=== PATIENT | male | born 1950 | race Caucasian/White ===

== ENCOUNTER → 2016-08-03 | Outpatient (CLI) | payer OTHER, BC | LOC: MMPC 09:00 | PROVIDERS: ATTEND Family Medicine | DX: I10 Essential (primary) hypertension (principal); B35.9 Dermatophytosis, unspecified; E11.9 Type 2 diabetes mellitus without complications; E78.5 Hyperlipidemia, unspecified; E66.3 Overweight | CPT/HCPCS: 99214; G0463 ==

== ENCOUNTER → 2016-08-05 | Outpatient (CLI) | payer OTHER, BC | LOC: MMPC 10:00 | PROVIDERS: ATTEND Podiatrist Foot & Ankle Surgery | DX: M20.11 Hallux valgus (acquired), right foot (principal); M20.41 Other hammer toe(s) (acquired), right foot; B35.1 Tinea unguium; E11.40 Type 2 diabetes mellitus with diabetic neuropathy, unspecified; E11.65 Type 2 diabetes mellitus with hyperglycemia; L60.3 Nail dystrophy; L60.0 Ingrowing nail; Z98.1 Arthrodesis status | CPT/HCPCS: 11720 ×2; 99202; G0463 ==

== ENCOUNTER 2016-09-08 19:06 | Inpatient (IN) | payer OTHER, BC ==
[2016-09-08] MEDS ORDERED: Sodium Chloride 0.9% 1,000 ML PRIMARY IV ONE (19:22)
[2016-09-08] MEDS ORDERED: NORMAL SALINE 10 ML SYRINGE FLUSH IVP PRN ×2 (19:22→22:24)
--- NOTE | 2016-09-08 19:34 | EKG ---
[address] [address] Measurements Intervals [place] Rate: 92 P: 64 SD: 355 QRS: 28 QRSD: 94 T: 218 QT: 347 QTc: 397 Interpretive Statements Sinus Rhythm with SD incorrectly reported by computer (0.200) NONSPECIFIC ST & T-WAVE ABNORMALITY and baseline interference Compared to ECG 10/08/2015 10:08:22 T-wave abnormality now present Sinus rhythm no longer present Left ventricular hypertrophy no longer present Possible ischemia no longer present Electronically Signed On 09-09-16 09:40:57 MST by Vincenzo Francis MD [email or web address]
[2016-09-08 19:47] LABS: ASPARTATE AMINO TRANSFERASE 34 IU/L (21-57); BILIRUBIN,TOTAL 0.8 mg/dL (0.3-1.2); BLOOD UREA NITROGEN 22 mg/dL (7-22); BUN/CREATININE RATIO 18.33 (6-20); C-REACTIVE PROTEIN 1.3 mg/dL (0.0-0.9); CALCIUM 10.4 mg/dL (8.7-10.7); CHLORIDE 97 meq/L (98-112); CREATININE 1.2 mg/dL (0.70-1.50); EST GLOMERULAR FILTRATION > 60 (>60 ml/min/1.73m(2)); MAGNESIUM 2.2 mg/dL (1.6-2.4); POTASSIUM 5.2 meq/L (3.8-5.2); SODIUM 131 meq/L (135-145); TOTAL PROTEIN 8.1 g/dL (6.1-8.0)
[2016-09-08 19:47] LABS: BASOPHILS # (AUTO) 0.02 10*3/UL; BASOPHILS % (AUTO) 0.2 % (0-1); EOSINOPHILS % (AUTO) 0.3 % (0-8); HEMATOCRIT 39.9 % (42.0-52.0); HEMOGLOBIN 14.3 g/dL (14.0-18.0); IMM GRAN % (AUTO) 0.4 % (0-5); IMM GRAN# (AUTO) 0.04 10*3/UL; LYMPHOCYTES # (AUTO) 1.28 10*3/uL; LYMPHOCYTES % (AUTO) 13.1 % (10-50); MEAN CORPUSCULAR HEMOGLOBIN 29.1 PG (27-31); MEAN CORPUSCULAR HGB CONC 35.8 g/dL (33-37); MEAN PLATELET VOLUME 9.3 FL (7.4-12.2); MONOCYTES # (AUTO) 0.55 10*3/UL (0.3-0.8); MONOCYTES % (AUTO) 5.6 % (5-15); NEUTROPHILS # (AUTO) 7.85 10*3/UL; NEUTROPHILS % (AUTO) 80.4 % (50-80); RED BLOOD COUNT 4.91 10^6/uL (4.70-6.10); WHITE BLOOD COUNT 9.77 10^3/uL (4.8-10.8)
[2016-09-08 19:48] LABS: PLATELET MORPHOLOGY COMMENT NORMAL MORPHOLOGY (NORM)
[2016-09-08 19:51] LABS: GLUCOSE 556 mg/dL (78-110); SERUM ALCOHOL < 10 mg/dL (0-10)
[2016-09-08] MEDS ORDERED: INSULIN REGULAR, HUMAN 100 UNIT/1 ML - 3 ML SUBCUT ONE (20:07)
[2016-09-08 20:08] LABS: BILIRUBIN,URINE NEGATIVE (NEG); CLARITY,URINE CLEAR (CLEAR); GLUCOSE, URINE (UA) 500 mg/dL (NEG); LEUKOCYTE ESTERASE ,URINE NEGATIVE (NEG); NITRATE,URINE NEGATIVE (NEG); OCCULT BLOOD,URINE SMALL (NEG); PROTEIN,URINE 30 mg/dl (NEG); UROBILINOGEN,URINE 0.2 EU/dL (0.2)
[2016-09-08 20:11] LABS: URINE SAMPLE TYPE VOIDED SPECIMEN
[2016-09-08 20:12] LABS: URINE SPECIFIC GRAVITY - MAN 1.005
[2016-09-08 20:14] LABS: VENOUS HCO3 13.4 mmol/L (22-26)
[2016-09-08 20:17] LABS: CANNABINOID SCREEN,URINE NEGATIVE (NEG); COCAINE SCREEN NEGATIVE (NEG); METHAMPHETAMINES SCREEN,URINE NEGATIVE (NEG)
--- NOTE | 2016-09-08 20:38 | DI ---
HISTORY: Confusion. COMPARISON: None available. TECHNIQUE: Multiple helically acquired CT images were obtained through the brain without contrast. FINDINGS: Examination demonstrates normal, symmetric ventricles and other CSF containing spaces. There is no evidence of mass lesion, hemorrhage nor midline shift. Surrounding soft tissue and osseous structures are unremarkable. IMPRESSION: 1. Normal CT of the head.
--- NOTE | 2016-09-08 21:29 | PDOC ---
History and Physical - History of Present Illness Date and Time of Service: 09/08/2016 10 PM Chief Complaint: Weakness, fall and confusion 1-2 days duration History of Present Illness: This is a 66 years old male with medical history significant for history of diabetes on insulin, hypertension, hypercholesterolemia, gout, chronic back pain and history of prostate cancer status post surgery who fell at home and he was unable to get up. He said the last day or 2 he is feeling weak, confused and dizzy and today he fell but he managed to get up and then later on he said as he laid down he fell and was between a chair and his bed and unable to get up and then managed to call EMS, however he said he struggled before he was able to contact them and then they came in and brought him to the hospital. Report from the ER physician is that the when the EMS arrived at the house they found that his home was covered with garbage, dog feces and urine. Apparently patient had fallen into a pile of garbage next to his bed. He came into the hospital was found to have a high blood sugar more than 500 he was given fluids and insulin and he was admitted. A CT of the head was normal. He did mention that the last time he took his insulin about 3 weeks ago as he cannot afford the medication. The last time he checked his blood sugar was 2 weeks ago. In addition the last time he took his pills was about 2 days ago. He reports history of numbness in his feet but this is being going on for a while and he said that's why he has a spinal stimulator. Past Medical History Medical History: 1. Diabetes on insulin. 2. History of gout. 3. Sleep apnea. 4. Hypertension. 5. History of prostate cancer status post surgery. 6. Chronic back pain had a previous spinal simulator insertion Surgical History: 1. History of prostatectomy. 2. History of left hand graft surgery. 3. Multiple back surgery. 4. History of spinal stimulator insertion before Pertinent Family History: Diabetes in his mother Past Social History: Never smoked, doesn't drink no drugs. Lives by himself. Tobacco Use: Former Smoker Substance Use Type: None Alcohol Use: None Medication / Allergies Home Medications: Home Medications Medication Instructions Recorded Confirmed Type Hydrocodone Bit/Acetaminophen 1 tab PO Q4-6H #15 tab 05/01/15 09/08/16 Clinic [[place] 7.5-325 Tablet] Ascorbic Acid [Vitamin C] 1,000 mg PO QD #30 tab 09/25/15 09/08/16 Clinic Cholecalciferol (Vitamin D3) 1 cap PO QD #30 cap 09/25/15 09/08/16 Clinic [Vitamin D] Sulfamethoxazole/Trimethoprim 1 tab PO BID #10 tab 10/14/15 09/08/16 Clinic [Bactrim Ds Tablet] Allopurinol 300 mg PO DAILY #90 tab 03/18/16 09/08/16 Clinic Amlodipine Besylate [Norvasc] 1 tab ORAL QAM #90 tab 03/18/16 09/08/16 Clinic Atorvastatin Calcium [Lipitor] 1 tab PO QHS #90 tab 03/18/16 09/08/16 Clinic Carisoprodol [Soma] 1 tab PO TID #90 tab 03/18/16 09/08/16 Clinic Doxazosin Mesylate [Cardura] 1 mg PO QHS #90 tab 03/18/16 09/08/16 Clinic Glimepiride 1 tab ORAL QD #90 tab 03/18/16 09/08/16 Clinic Indomethacin 50 mg PO TID #30 cap 03/18/16 09/08/16 Clinic Lisinopril/Hydrochlorothiazide 2 tab PO DAILY #60 tab 03/18/16 09/08/16 Clinic [Lisinopril-Hctz 20-12.5 Mg Tab] Lorazepam 1 tab PO TID PRN #30 tab 03/18/16 09/08/16 Clinic Metformin HCl 1 tab ORAL BID #180 tab 03/18/16 09/08/16 Clinic Metoprolol Succinate 1 tab PO DAILY #90 tab 03/18/16 09/08/16 Clinic Omeprazole 1 cap ORAL QD #90 capsule 03/18/16 09/08/16 Clinic Paroxetine HCl 1 tab ORAL QD #90 tab 03/18/16 09/08/16 Clinic Insulin Glargine Inj [Lantus Inj] 50 unit SQ TID #4 vial 03/19/16 09/08/16 Clinic Blood Sugar Diagnostic [Onetouch 1 each IN tid and hs #1 box 06/16/16 09/08/16 Clinic Ultra Test Strips] Lancets [Onetouch Delica] 1 each MC tid and hs #1 box 06/16/16 09/08/16 Clinic Metoprolol Succinate 1 tab PO DAILY #30 tab 07/20/16 09/08/16 Clinic Clotrimazole/Betamethasone Dip 1 applic TOPICAL BID #1 tube 08/03/16 09/08/16 Clinic [Clotrimazole-Betamethasone [facility]] Allergies/Adverse Reactions: Allergies Allergy/AdvReac Type Severity Reaction Status Date / Time No Known Allergies Allergy Verified 09/08/16 19:38 Review of Systems - Review of Systems All Systems: Reviewed & No Additional Complaints Except as Stated Exam - General General Appearance: POSITIVE: No Acute Distress, Cooperative, Obese - Head Head Exam: POSITIVE: Normal Inspection - Eye Eye Exam: POSITIVE: Normal Appearance - ENT ENT Exam: POSITIVE: Normal Exam - Neck Neck Exam: POSITIVE: Normal Inspection - Respiratory Respiratory Exam: POSITIVE: Clear to Auscultation - Bilaterally - Cardiovascular Cardiovascular Exam: POSITIVE: RRR - GI/Abdominal GI/Abdominal Exam: POSITIVE: Normal Bowel Sounds, Non Tender, Non Distended, Soft - Rectal Rectal Exam: POSITIVE: Deferred - External Exam: POSITIVE: Deferred - Extremities Additional Extremities Exam Details: A tinea corporis noted close of the right ankle. Few red areas noted on the left leg. Probably from the fall. Results - Labs CBC and BMP: 09/08/16 19:44 09/09/16 06:01 - EKG Data -: EKG Interpreted by Me - EKG Data Additional EKG Details: T inversion in the lateral leads but there is baseline interference from his stimulator - Imaging Status: Report Reviewed by Me (CT of the head was negative, chest x-ray was normal) Assessment and Plan - Patient Problems (1) Hyperosmolar non-ketotic state in patient with type 2 diabetes mellitus Current Visit: Yes Status: Acute Comment: This is probably secondary to not taking his medications, he was given fluid and insulin will continue with fluid and put him on sliding scale insulin. For long-acting insulin will put him on NPH as he said he can not afford the Lantus so NPH would be more affordable for him. Will put him also on regular insulin sliding scale. We'll hold off on the metformin for now and continue with the Amaryl. (2) Hypertension Current Visit: Yes Status: Acute Comment: Will put him back on lisinopril, metoprolol and Norvasc. (3) Hyperlipidemia Current Visit: Yes Status: Acute Comment: Continue with his previous medications (4) History of gout Current Visit: Yes Status: Acute Comment: Continue with allopurinol (5) Elevated troponin Current Visit: Yes Status: Acute Comment: Unclear reason he is denying chest pain. Repeat his enzymes tomorrow (6) Tinea corporis Current Visit: Yes Status: Acute Comment: We'll put him on topical clotrimazole
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
[2016-09-08] MEDS ORDERED: Insulin NPH Kwikpen Inj 100 UNIT/ML INSULN.PEN SUBCUT ONE (22:33)
[2016-09-08] MEDS: Sodium Chloride 0.9% 1,000 ML IV SCH (23:26)
[2016-09-09] MEDS: Sodium Chloride 0.9% 1,000 ML IV SCH ×2 (06:01→16:03)
[2016-09-09 06:37] LABS: BLOOD UREA NITROGEN 18 mg/dL (7-22); CALCIUM 9.3 mg/dL (8.7-10.7); CHLORIDE 104 meq/L (98-112); EST GLOMERULAR FILTRATION > 60 (>60 ml/min/1.73m(2)); GLUCOSE 294 mg/dL (78-110); POTASSIUM 3.8 meq/L (3.8-5.2); SODIUM 136 meq/L (135-145)
[2016-09-09] MEDS: INSULIN REGULAR, HUMAN 100 UNIT/1 ML - 3 ML SUBCUT SCH ×3 (07:06→16:59)
[2016-09-09] MEDS: ASPIRIN 325 MG TABLET PO SCH (07:06)
[2016-09-09] MEDS: METOPROLOL SUCCINATE 25 MG SR 24H TABLET PO SCH (08:37)
[2016-09-09] MEDS: ALLOPURINOL 300 MG TABLET PO SCH (08:37)
[2016-09-09] MEDS: LISINOPRIL 20 MG TABLET PO SCH (08:38)
[2016-09-09] MEDS: PARoxetine Tab 20 MG TAB PO SCH (08:38)
[2016-09-09] MEDS: GLIMEPIRIDE 2 MG TABLET PO SCH (08:38)
[2016-09-09] MEDS: ENOXAPARIN SODIUM 40 MG/0.4 ML SYRINGE SUBCUT SCH (08:38)
[2016-09-09] MEDS: OMEPRAZOLE 20 MG CAPSULE PO SCH (08:38)
[2016-09-09] MEDS: CLOTRIMAZOLE 28.35 GM CREAM TOPICAL SCH ×2 (08:40→20:20)
[2016-09-09] MEDS ORDERED: Insulin NPH Kwikpen Inj 100 UNIT/ML INSULN.PEN SUBCUT SCH ×2 (09:00→21:00)
--- NOTE | 2016-09-09 09:02 | PDOC(PROG) ---
Date and Time of Service: 09/09/2016 8:59 AM Interval History: Subjective Patient feels a lot better today compared to yesterday. He is denying chest pain. No shortness of breath today. Objective : Data - Labs CBC and BMP: 09/08/16 19:44 09/09/16 06:01 Labs - Last 24 Hours: Laboratory Results 09/09/16 Range/Units 06:01 Sodium 136 (135-145) meq/L Potassium 3.8 D (3.8-5.2) meq/L Chloride 104 (98-112) meq/L Carbon Dioxide 21 L (23-33) meq/L Anion Gap 11 (5-20) BUN 18 (7-22) mg/dL Creatinine 1.0 (0.70-1.50) mg/dL Estimated GFR > 60 (>60 ml/min/1.73m(2)) BUN/Creatinine Ratio 18.00 (6-20) Glucose 294 H (78-110) mg/dL Calculated Osmolality 294.0 H (267-292) mOsm/kg Calcium 9.3 (8.7-10.7) mg/dL Troponin I 0.108 H (< 0.040) ng/mL Objective : Exam - General General Appearance: No Acute Distress, Cooperative, Obese - Head Head Exam: Normal Inspection, Atraumatic - Eye Eye Exam: Normal Appearance - ENT ENT Exam: Normal Exam - Neck Neck Exam: Normal Inspection - Respiratory Respiratory Exam: Clear to Auscultation - Bilaterally - Cardiovascular Cardiovascular Exam: RRR - GI/Abdominal GI/Abdominal Exam: Normal Bowel Sounds, Non Tender, Non Distended, Soft - Rectal Rectal Exam: Deferred - External Exam: Deferred - Extremities Extremities Exam: Normal Inspection - Back Back Exam: Normal Inspection - Neurological Neurological Exam: Alert, Oriented x 3, CN II-XII Intact, Moves All Extremities Equally - Psychiatric Psychiatric Exam: Normal Affect - Integumentary Integumentary Exam: Normal Color Assessment and Plan - Patient Problems (1) Hyperosmolar non-ketotic state in patient with type 2 diabetes mellitus Current Visit: Yes Status: Acute Comment: This is improved. We'll cut back on his fluid and maybe stop it at one point today. We will put him on NPH insulin will talk to pharmacy about cost. Will switch him to NPH instead of the Lantus. As he cannot afford it (2) Hypertension Current Visit: Yes Status: Acute Comment: Same medications (3) Hyperlipidemia Current Visit: Yes Status: Acute Comment: Same med (4) History of gout Current Visit: Yes Status: Acute Comment: Same med (5) Elevated troponin Current Visit: Yes Status: Acute Comment: Troponin went little bit higher we'll recheck it again will order an echocardiogram I did tell him need to have a stress test at one point , he did say that he had a stress test last year will look for it (6) Tinea corporis Current Visit: Yes Status: Acute Comment: He is on Chlortrimazole
--- NOTE | 2016-09-09 09:27 | DI ---
AP CHEST X-RAY, 09/08/2016 8:08 PM : Clinical History: Confusion Previous Exam: October 08, 2015 There is no acute soft tissue or bony abnormality. Heart size is normal. Lungs are clear. Mediastinal structures are normal. There are no pulmonary nodules. Overlying EKG leads are seen. Reading: Normal chest x-ray.
--- NOTE | 2016-09-09 15:01 | EKG ---
[address] [place] [address] [place] [id number] Measurements Intervals [place] Rate: 74 P: 63 WI: 162 QRS: 53 QRSD: 106 T: 140 QT: 405 QTc: 432 Interpretive Statements SINUS RHYTHM MODERATE T-WAVE ABNORMALITY, CONSIDER LATERAL ISCHEMIA [-0.1+ mV T WAVE IN I/aVL/V5/V6] Compared to ECG 09/08/2016 19:33:38 baseline interference no longer present Possible ischemia now present mostly laterally but no development of Q-waves T-wave abnormality still present Electronically Signed On 09-10-16 08:29:52 [facility] by Vincenzo Francis MD [id number]
[2016-09-09] MEDS ORDERED: IBUPROFEN 400 MG TABLET PO PRN (19:20)
[2016-09-09] MEDS: Insulin NPH Kwikpen Inj 100 UNIT/ML INSULN.PEN SUBCUT SCH (20:19)
[2016-09-09] MEDS: ATORVASTATIN 40 MG TABLET PO SCH (20:19)
[2016-09-10 08:01] LABS: BLOOD UREA NITROGEN 20 mg/dL (7-22); CALCIUM 9.4 mg/dL (8.7-10.7); CHLORIDE 107 meq/L (98-112); EST GLOMERULAR FILTRATION > 60 (>60 ml/min/1.73m(2)); GLUCOSE 198 mg/dL (78-110); SODIUM 137 meq/L (135-145)
[2016-09-10] MEDS: GLIMEPIRIDE 2 MG TABLET PO SCH (08:13)
[2016-09-10] MEDS: LISINOPRIL 20 MG TABLET PO SCH (08:13)
[2016-09-10] MEDS: METOPROLOL SUCCINATE 25 MG SR 24H TABLET PO SCH (08:13)
[2016-09-10] MEDS: OMEPRAZOLE 20 MG CAPSULE PO SCH (08:13)
[2016-09-10] MEDS: ALLOPURINOL 300 MG TABLET PO SCH (08:13)
[2016-09-10] MEDS: PARoxetine Tab 20 MG TAB PO SCH (08:13)
[2016-09-10] MEDS: ASPIRIN 325 MG TABLET PO SCH (08:14)
[2016-09-10] MEDS: Insulin NPH Kwikpen Inj 100 UNIT/ML INSULN.PEN SUBCUT SCH ×2 (08:14→21:15)
[2016-09-10] MEDS: CLOTRIMAZOLE 28.35 GM CREAM TOPICAL SCH ×2 (08:14→21:16)
[2016-09-10] MEDS: ENOXAPARIN SODIUM 40 MG/0.4 ML SYRINGE SUBCUT SCH (08:15)
[2016-09-10] MEDS: INSULIN REGULAR, HUMAN 100 UNIT/1 ML - 3 ML SUBCUT SCH ×3 (08:15→16:22)
--- NOTE | 2016-09-10 12:25 | PDOC(PROG) ---
Interval History: Doing well or chest pain feels much better than when he first came in Objective : Data - Labs CBC and BMP: 09/08/16 19:44 09/10/16 07:48 Labs - Last 24 Hours: Laboratory Results 09/09/16 09/10/16 Range/Units 13:14 07:48 Sodium 137 (135-145) meq/L Potassium 4.0 (3.8-5.2) meq/L Chloride 107 (98-112) meq/L Carbon Dioxide 21 L (23-33) meq/L Anion Gap 9 (5-20) BUN 20 (7-22) mg/dL Creatinine 1.0 (0.70-1.50) mg/dL Estimated GFR > 60 (>60 ml/min/1.73m(2)) BUN/Creatinine Ratio 20.00 (6-20) Glucose 198 H (78-110) mg/dL Calculated Osmolality 292.0 (267-292) mOsm/kg Calcium 9.4 (8.7-10.7) mg/dL Troponin I 0.091 H (< 0.040) ng/mL Objective : Exam - General General Appearance: Cooperative - Head Head Exam: Normal Inspection - Eye Eye Exam: Normal Appearance - Neck Neck Exam: Normal Inspection - Respiratory Respiratory Exam: Clear to Auscultation - Bilaterally, Breathing Non Labored, Normal To Percussion, Normal to Percussion and Palpation - Cardiovascular Cardiovascular Exam: RRR, No Murmur, No Clicks, No Gallops - GI/Abdominal GI/Abdominal Exam: Normal Bowel Sounds, Non Tender, Soft - Extremities Extremities Exam: Normal Capillary Refill, No Clubbing Present, No Edema Present Assessment and Plan - Patient Problems (1) Dehydration Current Visit: Yes Status: Acute (2) Elevated troponin Current Visit: Yes Status: Acute (3) Hyperosmolar non-ketotic state in patient with type 2 diabetes mellitus Current Visit: Yes Status: Acute (4) Hypertension Current Visit: Yes Status: Acute - Assessment / Plan Additional Assessment/Plan Details: #1 uncontrolled diabetes hyperosmolar statethis is much better patient is on NPH now he cannot afford the Lantus sugars today 168 #2 positive troponins with the risk factors being diabetes hypertension order Lexiscan stress test #3 hypertension stable continue current meds #4 uncontrolled diabetes check hemoglobin A1c
[2016-09-10] MEDS: ATORVASTATIN 40 MG TABLET PO SCH (21:16)
[2016-09-11] MEDS ORDERED: Insulin NPH Kwikpen Inj 100 UNIT/ML INSULN.PEN SUBCUT ONE (02:18)
[2016-09-11] MEDS: ASPIRIN 325 MG TABLET PO SCH (07:29)
[2016-09-11] MEDS: INSULIN REGULAR, HUMAN 100 UNIT/1 ML - 3 ML SUBCUT SCH ×3 (07:30→17:37)
[2016-09-11] MEDS: Insulin NPH Kwikpen Inj 100 UNIT/ML INSULN.PEN SUBCUT SCH (07:30)
[2016-09-11] MEDS: OMEPRAZOLE 20 MG CAPSULE PO SCH (08:29)
[2016-09-11] MEDS: PARoxetine Tab 20 MG TAB PO SCH (08:29)
[2016-09-11] MEDS: ENOXAPARIN SODIUM 40 MG/0.4 ML SYRINGE SUBCUT SCH (08:30)
[2016-09-11] MEDS: GLIMEPIRIDE 2 MG TABLET PO SCH (08:30)
[2016-09-11] MEDS: ALLOPURINOL 300 MG TABLET PO SCH (08:30)
[2016-09-11] MEDS: LISINOPRIL 20 MG TABLET PO SCH (08:30)
[2016-09-11] MEDS: CLOTRIMAZOLE 28.35 GM CREAM TOPICAL SCH ×2 (08:55→20:28)
--- NOTE | 2016-09-11 09:37 | STRESSTEST ---
[facility] [place] Interpretive Statements This is a very nice 66 yo gentleman with hx of diabetes and htn ,comes in with hyperosmalar state and positive troponins. some inverted t waves in inf leads SOB resolved with coffee will await imaging Electronically Signed On 09-15-16 09:16:39 [facility] by Vincenzo Francis MD [id number]
[2016-09-11] MEDS: METOPROLOL SUCCINATE 25 MG SR 24H TABLET PO SCH (09:42)
--- NOTE | 2016-09-11 11:05 | PT.PROG ---
Progress Note Progress Note: S: Patient reports he had a stress test this morning and thinks it went well. He notes he is feeling recovered at this time and that he has been more steady on his feet lately. O: Ambulated 320' from seated in chair to seated EOB, 15 sit to stands, 20 LAQ Bilaterally, marching X30ea, HS curls with RTB X 20 ea, seated hip ABD X 20 with RTB. A: Noted fatigue following session, minor balance deficit with LE fatigue during amb. P: Continue per POC.
[2016-09-11] MEDS ORDERED: Insulin NPH Kwikpen Inj 100 UNIT/ML INSULN.PEN SUBCUT SCH (11:14)
--- NOTE | 2016-09-11 11:15 | PDOC(PROG) ---
Interval History: Patient is doing well he had a stress test today which went well no chest pain nausea or vomiting. Sugars still a little high I will increase his NPH at night by 35 from 30 Objective : Data - Labs CBC and BMP: 09/08/16 19:44 09/10/16 07:48 Objective : Exam - General General Appearance: Cooperative - Head Head Exam: Normal Inspection - Eye Eye Exam: Normal Appearance - Neck Neck Exam: Normal Inspection - Respiratory Respiratory Exam: Clear to Auscultation - Bilaterally, Breathing Non Labored - Cardiovascular Cardiovascular Exam: RRR, No Murmur, No Clicks, No Gallops - GI/Abdominal GI/Abdominal Exam: Non Tender, Non Distended, Soft - Extremities Extremities Exam: Normal Inspection, No Clubbing Present, No Edema Present - Neurological Neurological Exam: Alert, Oriented x 3, CN II-XII Intact, No Facial Droop Assessment and Plan - Patient Problems (1) Dehydration Current Visit: Yes Status: Acute (2) Elevated troponin Current Visit: Yes Status: Acute Comment: Stress test pending further planning upon results (3) Hyperosmolar non-ketotic state in patient with type 2 diabetes mellitus Current Visit: Yes Status: Acute Comment: We'll increase NPH to 30 5 at night from 30 (4) Hypertension Current Visit: Yes Status: Acute Comment: Stable
--- NOTE | 2016-09-11 12:59 | DI ---
HISTORY: Elevated troponin. TECHNIQUE: On 09/10/16, the patient was given 31.4 mCi of Tc99m Sestamibi intravenously at rest. The ECT study of the heart was obtained post injection. On 09/11/16, the patient was given 35.9 mCi of Tc99m Sestamibi intravenously at rest. Subsequently, th e patient received 0.4 mg/5mL of Lexiscan. The ECT study of the heart was obtained post injection. FINDINGS: Max HR: 152 beats per minute 85% MHR: 129 beats per minute HR Achieved: 86 beats per minute % MHR Acheived: 57% Sinogram Cine Images show no significant motion artifact. The ECT studies were reconstructed in short axis, vertical long axis, and horizontal long axis. There is uniform activity throughout the left ventricular myocardium in all the rest and stress images. No evidence of myocardial perfusion defect on stress images. On the stress gated SPECT study, the left ventricular ejection fraction is 55 %, and there is good wa ll motion of the left ventricle. Limited CT examination shows extensive coronary artery calclifications. A small 4 mm nodule is noted in the left upper lobe. No lung mass or airspace consolidation noted. Limited evaluation of the upper abdomen is unremarkable. IMPRESSION: 1. No evidence of myocardial perfusion defect on stress images. 2. Mildly decreased LVEF on stress images at 55%. 3. 4 mm nodule in the left upper lobe, incompletely evaluated. Correlate with risk factors and consid er dedicated Chest CT for father evaluation. 4. Extensive coronary artery atherosclerotic disease.
[2016-09-11] MEDS: ATORVASTATIN 40 MG TABLET PO SCH (20:28)
[2016-09-12 05:26] LABS: BASOPHILS # (AUTO) 0.03 10*3/UL; BASOPHILS % (AUTO) 0.5 % (0-1); EOSINOPHILS % (AUTO) 5.1 % (0-8); HEMATOCRIT 39.5 % (42.0-52.0); HEMOGLOBIN 13.8 g/dL (14.0-18.0); IMM GRAN % (AUTO) 0.2 % (0-5); IMM GRAN# (AUTO) 0.01 10*3/UL; LYMPHOCYTES # (AUTO) 2.57 10*3/uL; LYMPHOCYTES % (AUTO) 46.9 % (10-50); MEAN CORPUSCULAR HEMOGLOBIN 29.2 PG (27-31); MEAN CORPUSCULAR HGB CONC 34.9 g/dL (33-37); MEAN PLATELET VOLUME 9.6 FL (7.4-12.2); MONOCYTES # (AUTO) 0.38 10*3/UL (0.3-0.8); MONOCYTES % (AUTO) 6.9 % (5-15); NEUTROPHILS # (AUTO) 2.21 10*3/UL; NEUTROPHILS % (AUTO) 40.4 % (50-80); RDW COEFFICIENT OF VARIATION 14.2 % (11.5-14.5); RED BLOOD COUNT 4.72 10^6/uL (4.70-6.10); WHITE BLOOD COUNT 5.48 10^3/uL (4.8-10.8)
[2016-09-12 05:35] LABS: ASPARTATE AMINO TRANSFERASE 38 IU/L (21-57); BILIRUBIN,TOTAL 0.6 mg/dL (0.3-1.2); BLOOD UREA NITROGEN 25 mg/dL (7-22); CHLORIDE 102 meq/L (98-112); EST GLOMERULAR FILTRATION > 60 (>60 ml/min/1.73m(2)); GLUCOSE 251 mg/dL (78-110); POTASSIUM 4.1 meq/L (3.8-5.2); SODIUM 137 meq/L (135-145); TOTAL PROTEIN 7.5 g/dL (6.1-8.0)
[2016-09-12 05:56] LABS: PLATELET MORPHOLOGY COMMENT NORMAL MORPHOLOGY (NORM)
[2016-09-12] MEDS: INSULIN REGULAR, HUMAN 100 UNIT/1 ML - 3 ML SUBCUT SCH ×2 (08:00→11:27)
[2016-09-12] MEDS: Insulin NPH Kwikpen Inj 100 UNIT/ML INSULN.PEN SUBCUT SCH (08:00)
[2016-09-12] MEDS: ASPIRIN 325 MG TABLET PO SCH (08:04)
[2016-09-12] MEDS: ENOXAPARIN SODIUM 40 MG/0.4 ML SYRINGE SUBCUT SCH (08:04)
[2016-09-12] MEDS: METOPROLOL SUCCINATE 25 MG SR 24H TABLET PO SCH (08:04)
[2016-09-12] MEDS: LISINOPRIL 20 MG TABLET PO SCH (08:04)
[2016-09-12] MEDS: GLIMEPIRIDE 2 MG TABLET PO SCH (08:05)
[2016-09-12] MEDS: ALLOPURINOL 300 MG TABLET PO SCH (08:05)
[2016-09-12] MEDS: OMEPRAZOLE 20 MG CAPSULE PO SCH (08:05)
[2016-09-12] MEDS: PARoxetine Tab 20 MG TAB PO SCH (08:05)
[2016-09-12] MEDS: CLOTRIMAZOLE 28.35 GM CREAM TOPICAL SCH (08:09)
[2016-09-12] MEDS ORDERED: Insulin NPH Kwikpen Inj 100 UNIT/ML INSULN.PEN SUBCUT SCH (10:07)
--- NOTE | 2016-09-12 10:08 | PDOC(PROG) ---
Interval History: see D/C summary Objective : Data - Labs CBC and BMP: 09/12/16 05:02 09/12/16 05:02 Labs - Last 24 Hours: Laboratory Results 09/12/16 Range/Units 05:02 WBC 5.48 (4.8-10.8) 10^3/uL RBC 4.72 (4.70-6.10) 10^6/uL Hgb 13.8 L (14.0-18.0) g/dL Hct 39.5 L (42.0-52.0) % MCV 83.7 (80-90) FL MCH 29.2 (27-31) PG MCHC 34.9 (33-37) g/dL RDW Std Deviation 42.4 (39-50) fL RDW Coeff of Brittany 14.2 (11.5-14.5) % Plt Count 184 (140-350) 10*3/uL MPV 9.6 (7.4-12.2) FL Immature Gran % (Auto) 0.2 (0-5) % Neut % (Auto) 40.4 L (50-80) % Lymph % (Auto) 46.9 (10-50) % [place] % (Auto) 6.9 (5-15) % Eos % (Auto) 5.1 (0-8) % Baso % (Auto) 0.5 (0-1) % Immature Gran # (Auto) 0.01 10*3/UL Neut # (Auto) 2.21 10*3/UL Lymph # (Auto) 2.57 10*3/uL [place] # (Auto) 0.38 (0.3-0.8) 10*3/UL Eos # (Auto) 0.28 10*3/UL Baso # (Auto) 0.03 10*3/UL WBC Morphology Comment Normal morphology (NORM) Plt Morphology Comment Normal morphology (NORM) RBC Morph Comment Normal morphology (NORM) Sodium 137 (135-145) meq/L Potassium 4.1 (3.8-5.2) meq/L Chloride 102 (98-112) meq/L Carbon Dioxide 21 L (23-33) meq/L Anion Gap 14 (5-20) BUN 25 H (7-22) mg/dL Creatinine 1.0 (0.70-1.50) mg/dL Estimated GFR > 60 (>60 ml/min/1.73m(2)) BUN/Creatinine Ratio 25.00 H (6-20) Glucose 251 H (78-110) mg/dL Calculated Osmolality 295.0 H (267-292) mOsm/kg Calcium 10.0 (8.7-10.7) mg/dL Total Bilirubin 0.6 (0.3-1.2) mg/dL AST 38 (21-57) IU/L ALT 43 (21-72) IU/L Alkaline Phosphatase 91 (38-126) IU/L Total Protein 7.5 (6.1-8.0) g/dL Albumin 4.0 (3.5-4.8) g/dL Globulin 3.5 (2.50-4.10) g/dL Albumin/Globulin Ratio 1.10 L (1.3-2.0) mg/g Assessment and Plan - Patient Problems (1) Dehydration Current Visit: Yes Status: Acute Comment: Resolved (2) Elevated troponin Current Visit: Yes Status: Acute Comment: Lexiscan stress test was negative (3) Hyperosmolar non-ketotic state in patient with type 2 diabetes mellitus Current Visit: Yes Status: Acute Comment: Resolved I will increase the NPH to 40 units at night sugars morning was 250 maybe we can get some better control (4) Hypertension Current Visit: Yes Status: Acute Comment: Stable
--- NOTE | 2016-09-12 10:29 | PT.PROG ---
Progress Note Progress Note: S: Pt reports that he is eager to go home and is anticipating to be discharged "anytime". O: Treatment consisted of: 10' NuStep, 8' UBE, STS with 4# ball x10, 5# bicep curls 20x B UE, green theraband resisted around the clocks 30", green theraband rows 20x, pillow squeezes 15x, balance grid 3x, ankle pumps 20x. A: Pt tolerated treatment well today, pt required two seated rest breaks between activities and had 2 minor LOB with balance grid which resolved with tactile cuing. P: Continue to treat per POC to address previously determined goals and objectives.
[2016-09-12 11:17] VITALS: RESP 18; TEMP 97.6
--- NOTE | 2016-09-12 12:44 | DCSUMMARY ---
Hospitalization Summary Hospital Course: Final Discharge Diagnosis: Current Visit Problems Problem Status Priority Diagnosed Code Altered mental status Acute R41.82 Dehydration Acute E86.0 Elevated troponin Acute R74.8 History of gout Acute Z87.39 Hyperglycemia Acute R73.9 Hyperlipidemia Acute E78.5 Hyperosmolar non-ketotic state in patient with type 2 diabetes mellitus Acute E11.01 Hypertension Acute I10 Tinea corporis Acute B35.4 Diagnostic Data, Laboratory Data, and Procedures of Signifigance: Intake and Output (24hr x 4 totals) 09/10/16 09/11/16 09/12/16 09/13/16 05:59 05:59 05:59 05:59 Intake Total 1805 120 360 595 Output Total 475 1950 1800 550 Balance 1330 -1830 -1440 45 Laboratory Results 09/08/16 09/08/16 09/08/16 Range/Units 19:22 19:32 19:44 WBC 9.77 (4.8-10.8) 10^3/uL RBC 4.91 (4.70-6.10) 10^6/uL Hgb 14.3 (14.0-18.0) g/dL Hct 39.9 L (42.0-52.0) % MCV 81.3 (80-90) FL MCH 29.1 (27-31) PG MCHC 35.8 (33-37) g/dL RDW Std Deviation 40.3 (39-50) fL RDW Coeff of Brittany 14.0 (11.5-14.5) % Plt Count 178 (140-350) 10*3/uL MPV 9.3 (7.4-12.2) FL Immature Gran % (Auto) 0.4 (0-5) % Neut % (Auto) 80.4 H (50-80) % Lymph % (Auto) 13.1 (10-50) % [place] % (Auto) 5.6 (5-15) % Eos % (Auto) 0.3 (0-8) % Baso % (Auto) 0.2 (0-1) % Immature Gran # (Auto) 0.04 10*3/UL Neut # (Auto) 7.85 10*3/UL Lymph # (Auto) 1.28 10*3/uL [place] # (Auto) 0.55 (0.3-0.8) 10*3/UL Eos # (Auto) 0.03 10*3/UL Baso # (Auto) 0.02 10*3/UL WBC Morphology Comment Normal morphology (NORM) Plt Morphology Comment Normal morphology (NORM) RBC Morph Comment Normal morphology (NORM) PT 10.0 (9.7-11.4) secs INR 0.97 (0.00-5.90) N/A D-Dimer 1.08 H (0.00-0.59) mg/L VBG pH 7.49 H (7.32-7.42) VBG pCO2 17.5 L (45-55) mmHg VBG HCO3 13.4 L (22-26) mmol/L VBG Base Excess -10 L (-2-2) MMOL/L Sodium 131 L (135-145) meq/L Potassium 5.2 (3.8-5.2) meq/L Chloride 97 L (98-112) meq/L Carbon Dioxide 17 L (23-33) meq/L Anion Gap 17 (5-20) BUN 22 (7-22) mg/dL Creatinine 1.2 (0.70-1.50) mg/dL Estimated GFR > 60 (>60 ml/min/1.73m(2)) BUN/Creatinine Ratio 18.33 (6-20) Glucose 556 H* (78-110) mg/dL Calculated Osmolality 299.0 H (267-292) mOsm/kg Calcium 10.4 (8.7-10.7) mg/dL Magnesium 2.2 (1.6-2.4) mg/dL Total Bilirubin 0.8 (0.3-1.2) mg/dL AST 34 (21-57) IU/L ALT 34 (21-72) IU/L Alkaline Phosphatase 112 (38-126) IU/L Total Creatine Kinase 88 (55-170) IU/L Troponin I 0.063 H (< 0.040) ng/mL C-Reactive Protein 1.3 H (0.0-0.9) mg/dL Total Protein 8.1 H (6.1-8.0) g/dL Albumin 4.6 (3.5-4.8) g/dL Globulin 3.5 (2.50-4.10) g/dL Albumin/Globulin Ratio 1.30 (1.3-2.0) mg/g Ur Collection Type Urine Color Urine Clarity (CLEAR) Urine pH (5.0-8.5) Ur Specific Kodak (1.005-1.030) U Specif Grav (Refrac) Urine Protein (NEG) mg/dl Urine Glucose (UA) (NEG) mg/dL Urine Ketones (NEG) Urine Occult Blood (NEG) Urine Nitrate (NEG) Urine Bilirubin (NEG) Urine Urobilinogen (0.2) EU/dL Ur Leukocyte Esterase (NEG) Urine RBC (NONE) /hpf Urine WBC (NONE) Ur Squamous Epith Cells (NONE) Ur Renal Epithelial Cell (NONE) Urine Crystals Urine Bacteria (NONE) Urine Casts (NONE) Urine Mucus (NONE) Urine Trichomonas (NONE) Urine Yeast (NONE) Ur Culture Indicated? Urine Opiates Screen (NEG) Ur Buprenorphine (NEG) Ur Oxycodone Screen (NEG) Urine Methadone Screen (NEG) Ur Propoxyphene Screen (NEG) Barbiturate Screen (NEG) U Tricyclic Antidepress (NEG) Phencyclidine Screen (NEG) Amphetamines Screen (NEG) U Methamphetamines Scrn (NEG) Benzodiazepines Screen (NEG) Cocaine Screen (NEG) U Marijuana (THC) Screen (NEG) Serum Alcohol < 10 (0-10) mg/dL 09/08/16 09/09/16 09/09/16 Range/Units 20:05 06:01 13:14 WBC (4.8-10.8) 10^3/uL RBC (4.70-6.10) 10^6/uL Hgb (14.0-18.0) g/dL Hct (42.0-52.0) % MCV (80-90) FL MCH (27-31) PG MCHC (33-37) g/dL RDW Std Deviation (39-50) fL RDW Coeff of Brittany (11.5-14.5) % Plt Count (140-350) 10*3/uL MPV (7.4-12.2) FL Immature Gran % (Auto) (0-5) % Neut % (Auto) (50-80) % Lymph % (Auto) (10-50) % [place] % (Auto) (5-15) % Eos % (Auto) (0-8) % Baso % (Auto) (0-1) % Immature Gran # (Auto) 10*3/UL Neut # (Auto) 10*3/UL Lymph # (Auto) 10*3/uL [place] # (Auto) (0.3-0.8) 10*3/UL Eos # (Auto) 10*3/UL Baso # (Auto) 10*3/UL WBC Morphology Comment (NORM) Plt Morphology Comment (NORM) RBC Morph Comment (NORM) PT (9.7-11.4) secs INR (0.00-5.90) N/A D-Dimer (0.00-0.59) mg/L VBG pH (7.32-7.42) VBG pCO2 (45-55) mmHg VBG HCO3 (22-26) mmol/L VBG Base Excess (-2-2) MMOL/L Sodium 136 (135-145) meq/L Potassium 3.8 D (3.8-5.2) meq/L Chloride 104 (98-112) meq/L Carbon Dioxide 21 L (23-33) meq/L Anion Gap 11 (5-20) BUN 18 (7-22) mg/dL Creatinine 1.0 (0.70-1.50) mg/dL Estimated GFR > 60 (>60 ml/min/1.73m(2)) BUN/Creatinine Ratio 18.00 (6-20) Glucose 294 H (78-110) mg/dL Calculated Osmolality 294.0 H (267-292) mOsm/kg Calcium 9.3 (8.7-10.7) mg/dL Magnesium (1.6-2.4) mg/dL Total Bilirubin (0.3-1.2) mg/dL AST (21-57) IU/L ALT (21-72) IU/L Alkaline Phosphatase (38-126) IU/L Total Creatine Kinase (55-170) IU/L Troponin I 0.108 H 0.091 H (< 0.040) ng/mL C-Reactive Protein (0.0-0.9) mg/dL Total Protein (6.1-8.0) g/dL Albumin (3.5-4.8) g/dL Globulin (2.50-4.10) g/dL Albumin/Globulin Ratio (1.3-2.0) mg/g Ur Collection Type Voided specimen Urine Color Yellow Urine Clarity Clear (CLEAR) Urine pH 5.0 (5.0-8.5) Ur Specific Kodak 1.005 (1.005-1.030) U Specif Grav (Refrac) 1.005 Urine Protein 30 (NEG) mg/dl Urine Glucose (UA) 500 (NEG) mg/dL Urine Ketones 15 (NEG) Urine Occult Blood Small H (NEG) Urine Nitrate Negative (NEG) Urine Bilirubin Negative (NEG) Urine Urobilinogen 0.2 (0.2) EU/dL Ur Leukocyte Esterase Negative (NEG) Urine RBC 3-5 (NONE) /hpf Urine WBC None (NONE) Ur Squamous Epith Cells None (NONE) Ur Renal Epithelial Cell None (NONE) Urine Crystals None Urine Bacteria None (NONE) Urine Casts None (NONE) Urine Mucus None (NONE) Urine Trichomonas None (NONE) Urine Yeast None (NONE) Ur Culture Indicated? Culture not set Urine Opiates Screen Negative (NEG) Ur Buprenorphine Negative (NEG) Ur Oxycodone Screen Negative (NEG) Urine Methadone Screen Negative (NEG) Ur Propoxyphene Screen Negative (NEG) Barbiturate Screen Negative (NEG) U Tricyclic Antidepress Negative (NEG) Phencyclidine Screen Negative (NEG) Amphetamines Screen Negative (NEG) U Methamphetamines Scrn Negative (NEG) Benzodiazepines Screen Negative (NEG) Cocaine Screen Negative (NEG) U Marijuana (THC) Screen Negative (NEG) Serum Alcohol (0-10) mg/dL 09/10/16 09/12/16 Range/Units 07:48 05:02 WBC 5.48 (4.8-10.8) 10^3/uL RBC 4.72 (4.70-6.10) 10^6/uL Hgb 13.8 L (14.0-18.0) g/dL Hct 39.5 L (42.0-52.0) % MCV 83.7 (80-90) FL MCH 29.2 (27-31) PG MCHC 34.9 (33-37) g/dL RDW Std Deviation 42.4 (39-50) fL RDW Coeff of Brittany 14.2 (11.5-14.5) % Plt Count 184 (140-350) 10*3/uL MPV 9.6 (7.4-12.2) FL Immature Gran % (Auto) 0.2 (0-5) % Neut % (Auto) 40.4 L (50-80) % Lymph % (Auto) 46.9 (10-50) % [place] % (Auto) 6.9 (5-15) % Eos % (Auto) 5.1 (0-8) % Baso % (Auto) 0.5 (0-1) % Immature Gran # (Auto) 0.01 10*3/UL Neut # (Auto) 2.21 10*3/UL Lymph # (Auto) 2.57 10*3/uL [place] # (Auto) 0.38 (0.3-0.8) 10*3/UL Eos # (Auto) 0.28 10*3/UL Baso # (Auto) 0.03 10*3/UL WBC Morphology Comment Normal morphology (NORM) Plt Morphology Comment Normal morphology (NORM) RBC Morph Comment Normal morphology (NORM) PT (9.7-11.4) secs INR (0.00-5.90) N/A D-Dimer (0.00-0.59) mg/L VBG pH (7.32-7.42) VBG pCO2 (45-55) mmHg VBG HCO3 (22-26) mmol/L VBG Base Excess (-2-2) MMOL/L Sodium 137 137 (135-145) meq/L Potassium 4.0 4.1 (3.8-5.2) meq/L Chloride 107 102 (98-112) meq/L Carbon Dioxide 21 L 21 L (23-33) meq/L Anion Gap 9 14 (5-20) BUN 20 25 H (7-22) mg/dL Creatinine 1.0 1.0 (0.70-1.50) mg/dL Estimated GFR > 60 > 60 (>60 ml/min/1.73m(2)) BUN/Creatinine Ratio 20.00 25.00 H (6-20) Glucose 198 H 251 H (78-110) mg/dL Calculated Osmolality 292.0 295.0 H (267-292) mOsm/kg Calcium 9.4 10.0 (8.7-10.7) mg/dL Magnesium (1.6-2.4) mg/dL Total Bilirubin 0.6 (0.3-1.2) mg/dL AST 38 (21-57) IU/L ALT 43 (21-72) IU/L Alkaline Phosphatase 91 (38-126) IU/L Total Creatine Kinase (55-170) IU/L Troponin I (< 0.040) ng/mL C-Reactive Protein (0.0-0.9) mg/dL Total Protein 7.5 (6.1-8.0) g/dL Albumin 4.0 (3.5-4.8) g/dL Globulin 3.5 (2.50-4.10) g/dL Albumin/Globulin Ratio 1.10 L (1.3-2.0) mg/g Ur Collection Type Urine Color Urine Clarity (CLEAR) Urine pH (5.0-8.5) Ur Specific Kodak (1.005-1.030) U Specif Grav (Refrac) Urine Protein (NEG) mg/dl Urine Glucose (UA) (NEG) mg/dL Urine Ketones (NEG) Urine Occult Blood (NEG) Urine Nitrate (NEG) Urine Bilirubin (NEG) Urine Urobilinogen (0.2) EU/dL Ur Leukocyte Esterase (NEG) Urine RBC (NONE) /hpf Urine WBC (NONE) Ur Squamous Epith Cells (NONE) Ur Renal Epithelial Cell (NONE) Urine Crystals Urine Bacteria (NONE) Urine Casts (NONE) Urine Mucus (NONE) Urine Trichomonas (NONE) Urine Yeast (NONE) Ur Culture Indicated? Urine Opiates Screen (NEG) Ur Buprenorphine (NEG) Ur Oxycodone Screen (NEG) Urine Methadone Screen (NEG) Ur Propoxyphene Screen (NEG) Barbiturate Screen (NEG) U Tricyclic Antidepress (NEG) Phencyclidine Screen (NEG) Amphetamines Screen (NEG) U Methamphetamines Scrn (NEG) Benzodiazepines Screen (NEG) Cocaine Screen (NEG) U Marijuana (THC) Screen (NEG) Serum Alcohol (0-10) mg/dL History and Physical pertinent to Admission: See H&P admitted for hyperosmolar state Past Medical History Medical History: 1. Diabetes on insulin. 2. History of gout. 3. Sleep apnea. 4. Hypertension. 5. History of prostate cancer status post surgery. 6. Chronic back pain had a previous spinal simulator insertion Surgical History: 1. History of prostatectomy. 2. History of left hand graft surgery. 3. Multiple back surgery. 4. History of spinal stimulator insertion before Pertinent Family History: Diabetes in his mother Past Social History: Never smoked, doesn't drink no drugs. Lives by himself. Tobacco Use: Former Smoker Substance Use Type: None Alcohol Use: None Course of Hospitalization: This very nice 66-year-old gentleman with past medical history significant for diabetes on Lantus, hypertension, hypercholesterolemia, gout, chronic back pain and history of prostate cancer status post surgery he was feeling weak over the last couple of days confused and dizzy at home he was covered with garbage and dog feces and urine according to EMS and he had fallen the oral polyp garbage in the ER was found to be hyperosmolar state with a sugar of 500 CT scan of his head was within normal limits he did not take his insulin for about 3 weeks ago she could not afford the medication here in the hospital we switched him over to NPH which is more affordable is been doing quite well with sugars with a NPH of 20 5 in the morning and 40 at night's also he had some mild mild troponins and a Lexiscan stress test was done which revealed no ischemia and feels much better and is back to his normal self be discharged home in stable and improved condition he does get paid on Tuesday he will be given some pens here when he leaves and he can go by more insulin on this Tuesday he will have a follow-up with Dr. Cedillo in about 5 days On the date of discharge, the patient was examined: Gen.: No acute distress, alert, nontoxic Heart: Regular rate and rhythm, no murmurs, clicks, gallops, or rubs Lungs: Clear to auscultation bilaterally, breathing is nonlabored Abdomen/GI: Normal tones on auscultation, soft, nontender, nondistended Musculoskeletal/extremities: No clubbing, cyanosis, or edema Vitals reviewed and are listed below Vital Signs (24 hrs) Temp Pulse Pulse Pulse Resp BP Pulse Ox 09/12/16 11:14 97.6 F 64 18 132/62 95 09/12/16 11:00 65 09/12/16 07:41 97 F 67 19 189/77 97 09/12/16 07:00 50 L 65 09/12/16 05:00 97.2 F 62 20 171/89 96 09/12/16 03:08 55 L 09/12/16 01:00 97.4 F 63 18 161/85 98 09/11/16 23:00 56 L 09/11/16 20:49 97.0 F 61 20 148/80 97 09/11/16 20:25 56 L 09/11/16 19:00 69 09/11/16 17:00 97.2 F 81 20 170/77 94 09/11/16 15:00 73 09/11/16 13:00 97.2 F 71 20 185/87 96 Assessment and Plan: 1. As per discharge assessments above 2. Disposition: Home 3. Condition on discharge, stable and improved. 4. Diet: Low-carb diet 5. Activities: resume normal activities 6. Follow-Up: 1. PCP Dr. Cedillo 2. 7. Medications at the Time of Discharge: Home Medications Medication Instructions Recorded Confirmed Type Hydrocodone Bit/Acetaminophen 1 tab PO Q4-6H #15 tab 05/01/15 09/08/16 Clinic [Labelle 7.5-325 Tablet] Ascorbic Acid [Vitamin C] 1,000 mg PO QD #30 tab 09/25/15 09/08/16 Clinic Cholecalciferol (Vitamin D3) 1 cap PO QD #30 cap 09/25/15 09/08/16 Clinic [Vitamin D3] Allopurinol 300 mg PO DAILY #90 tab 03/18/16 09/08/16 Clinic Amlodipine Besylate [Norvasc] 1 tab ORAL QAM #90 tab 03/18/16 09/08/16 Clinic Atorvastatin Calcium [Lipitor] 1 tab PO QHS #90 tab 03/18/16 09/08/16 Clinic Carisoprodol [Soma] 1 tab PO TID #90 tab 03/18/16 09/08/16 Clinic Doxazosin Mesylate [Cardura] 1 mg PO QHS #90 tab 03/18/16 09/08/16 Clinic Glimepiride 1 tab ORAL QD #90 tab 03/18/16 09/08/16 Clinic Lisinopril/Hydrochlorothiazide 2 tab PO DAILY #60 tab 03/18/16 09/08/16 Clinic [Lisinopril-Hctz 20-12.5 mg Tab] Lorazepam 1 tab PO TID PRN #30 tab 03/18/16 09/08/16 Clinic Metformin HCl 1 tab ORAL BID #180 tab 03/18/16 09/08/16 Clinic Metoprolol Succinate 1 tab PO DAILY #90 tab 03/18/16 09/08/16 Clinic Omeprazole 1 cap ORAL QD #90 capsule 03/18/16 09/08/16 Clinic Paroxetine HCl 1 tab ORAL QD #90 tab 03/18/16 09/08/16 Clinic Blood Sugar Diagnostic [Onetouch 1 each IN tid and hs #1 box 06/16/16 09/08/16 Clinic Ultra Test Strips] Lancets [Onetouch Delica] 1 each MC tid and hs #1 box 06/16/16 09/08/16 Clinic Metoprolol Succinate 1 tab PO DAILY #30 tab 07/20/16 09/08/16 Clinic Clotrimazole/Betamethasone Dip 1 applic TOPICAL BID #1 tube 08/03/16 09/08/16 Clinic [Clotrimazole-Betamethasone Crm] Aspirin 325 mg PO C BK tab 09/12/16 Rx Insulin NPH Kwikpen Inj [HumuLIN N 25 unit SUBCUT DAILY@0700 #1 09/12/16 Rx Kwikpen Inj] [email or web address] Insulin NPH Kwikpen Inj [HumuLIN N 40 unit SUBCUT 2100 #1 insuln.pen 09/12/16 Rx Kwikpen Inj] 8. Time, care, counseling and coordination of care for this discharge is greater than 30 minutes. Exam - Vitals Vital Signs: Vital Signs Temperature 97.6 F Temperature Source Temporal Artery Scan Pulse Rate [Apical] 65 Pulse Rate [Pulse Oximeter] 64 Pulse Rate 65 Respiratory Rate 18 Blood Pressure [Left Arm] 132/62 Pulse Ox 95 Oxygen Delivery Method Room Air Height 6 ft Weight 116.029 kg Patient Problems - Patient Problem List (1) Dehydration Current Visit: Yes Status: Acute (2) Elevated troponin Current Visit: Yes Status: Acute (3) Hyperosmolar non-ketotic state in patient with type 2 diabetes mellitus Current Visit: Yes Status: Acute (4) Hypertension Current Visit: Yes Status: Acute
--- NOTE | 2016-09-13 16:37 | OTI REPORT ---
Thank you for the referral of Lance Huff. He was seen on 09/10/16 for an occupational therapy inpatient evaluation secondary to weakness and a fall at home. SUBJECTIVE: The patient is a 66-year-old male. The patient is a diabetic and cannot afford his medications so his blood sugar upon admittance was 500. At this time discharge planning is important. PAST MEDICAL HISTORY: Past medical history can be found in the patient's medical record. OBJECTIVE FINDINGS: Activities of daily living: Grooming: The patient requires contact guard assist due to decreased dynamic and standing balance for face washing, teeth brushing, hair combing, and toileting. When pulling pants up/down the patient required steadying. Toilet transfer: The patient requires contact guard to min assist with use of grab bars. Shower transfer: The patient requires mod assist with moderate verbal cueing for safety. The patient lived in an apartment with shower set up but it does not sound like he is going to go back home to that. Again, discharge planning will be important. Upper body dressing: The patient requires set up assistance. Lower body dressing: The patient requires mod assistance. The patient does have limited back mobility, motion, and functional reach and has difficulty initiating threading for bilateral lowers for brief and socks. Range of motion: Upper body range of motion is within normal limits. Strength: Bilateral upper extremity strength is 3/5 to 3+/5, depending on the pivot. ASSESSMENT: Problem List: Decreased endurance Decreased functional balance Decreased mobility Decreased transfers Decreased ability to perform ADLs Decreased safety Level of assistance may change with activity greater than 4 minutes Short-Term Goals: To be met by discharge from inpatient: Patient will be able to complete basic ADLs with modified independence to stand by assistance in order to be discharged to the least restrictive environment with adaptive equipment use as necessary. Patient will be able to complete functional transfers including toilet transfer and tub/shower transfer with modified independence to stand by assistance with use of adaptive equipment as necessary. Patient will increase functional endurance to 6-8 minutes of continuous activity without becoming short of breath or experiencing loss of balance. Long-Term Goals: To be met following discharge from inpatient: Patient will be able to complete basic ADLs and functional transfers with modified independence to supervision with use of adaptive equipment as necessary and in the least restrictive environment. TREATMENT PLAN: Patient will be seen B.I.D during the week and one time per day over the weekend as an inpatient to address the above goals and objectives. INITIAL TREATMENT: Treatment today consisted of the initial evaluation activities only. PREM
--- NOTE | 2016-09-14 10:54 | PTI REPORT ---
Thank you for the referral of Lance Huff. He was seen on 09/10/16 for an inpatient evaluation secondary to generalized weakness. SUBJECTIVE: The patient is a 66-year-old male. The patient reports that he lives in a basement apartment and has stairs to get up and down. The patient reports he doesn't use an assistive device. The patient has a previous history of back injury. The patient says he can't feel his feet and has numbness and tingling in his feet at times. PAST MEDICAL HISTORY: Past medical history can be found in the patient's medical record. OBJECTIVE FINDINGS: General observations: The patient was supine upright in bed upon the therapist' s arrival. The patient's bed alarm was not on. Bed mobility: The patient required stand by assist for supine to sit transfer with the guard rails and head of bed elevated. Transfers: The patient performed sit to stand transfer with stand by assistance. Ambulation: The patient required contact guard assist x1 for gait. Balance: The patient struggled with single legged stance and demonstrated moderate sway with eyes closed and close, narrow base of support. The patient was able to perform single legged stance x2 seconds on the left and 8 seconds on the right. He was able to pick an object up off of the floor. He was able to withstand perturbations and turn in a mechoopda. Strength: The patient demonstrated 4+/5 gross bilateral lower extremity strength. Sensation: The patient demonstrated decreased dermatomes at L5 and L4 and one on the feet. ASSESSMENT: The patient is a 66-year-old male that presents with generalized weakness and decreased balance. The patient would benefit from skilled therapy in order to return to prior level of function. The patient's prognosis for therapy is good. Problem List: Decreased strength Decreased independence Decreased balance Short-Term Goals: To be met by discharge from inpatient: Patient will be independent with all transfers. Patient will be able to ambulate 300 feet independently. Patient will be able to tolerate 30 minutes of activity. Patient will be able to ascend and descend one flight of stairs independently. Long-Term Goals: To be met following discharge from inpatient: Patient may benefit from being seen by outpatient physical therapy but ultimately he will be able to return home safely and independently. TREATMENT PLAN: Patient will be seen B.I.D during the week and one time per day over the weekend as an inpatient for therapeutic exercise, functional activity, gait training, neuromuscular reeducation, and modalities as needed. INITIAL TREATMENT: Treatment today consisted of the initial evaluation. The patient was brought down to therapy by occupational therapy. He received an application of moist heat pack x20 minutes including set up to the low back. The patient was instructed in seated marches, seated long arc quads, minute drills with three pounds, seated clamshells with green theraband, seated hamstring curls with green theraband, and new step x7 minutes. The patient was fatigued post therapy session and was escorted back to his room and left in his room with propre alarms placed. PREM
== END 2016-09-12 14:47 | disposition home or self-care (01) | DRG 639 ==
LOC: ER 19:06 → MED/SURG 20:59
PROVIDERS: ADMIT Internal Medicine; ATTEND Internal Medicine
DX: E11.00 Type 2 diabetes mellitus with hyperosmolarity without nonketotic hyperglycemic-hyperosmolar coma (NKHHC) (principal); R73.9 Hyperglycemia, unspecified; E11.65 Type 2 diabetes mellitus with hyperglycemia; E86.0 Dehydration; R41.82 Altered mental status, unspecified; R74.8 Abnormal levels of other serum enzymes; Z87.39 Personal history of other diseases of the musculoskeletal system and connective tissue; E78.5 Hyperlipidemia, unspecified; I10 Essential (primary) hypertension; B35.4 Tinea corporis
CPT/HCPCS: 36415; 70450; 71010; 80053; 80305; 80320; 81001; 81003; 82550; 82803; 82948; 83735; 84484; 85025; 85379; 85610; 86140; 93005; 93010; 96360; 96372; 99285 ×2; J1815; 78452; 80048; 93016; 93017; 93018; 93306; 97110; 97166; J1650; J7030

== ENCOUNTER → 2016-09-17 | Outpatient (CLI) | payer OTHER, BC | LOC: MMPC 09:00 | PROVIDERS: ATTEND Family Medicine | DX: E11.9 Type 2 diabetes mellitus without complications (principal); I10 Essential (primary) hypertension; E78.5 Hyperlipidemia, unspecified; M54.5 Low back pain; E66.3 Overweight | CPT/HCPCS: 99213 ==

== ENCOUNTER → 2016-09-22 | Outpatient (CLI) | payer OTHER, BC ==
--- NOTE | 2016-09-22 13:54 | EKG ---
[address] [place] [address] Measurements Intervals [place] Rate: 104 P: 60 CA: 128 QRS: 66 QRSD: 97 T: -71 QT: 332 QTc: 392 Interpretive Statements SINUS TACHYCARDIA POSSIBLE LEFT ATRIAL ENLARGEMENT [-0.1mV P WAVE IN V1/V2] ST DEVIATION AND MODERATE T-WAVE ABNORMALITY, CONSIDER INFERO- LATERAL ISCHEMIA Compared to ECG 09/09/2016 07:12:03 Sinus rhythm no longer present T-wave abnormality still present Possible ischemia still present Electronically Signed On 09-22-16 15:53:[address] [facility] by Antoine Bailey [email or web address]
[2016-09-22 15:27] LABS: BILIRUBIN,URINE NEGATIVE (NEG); CLARITY,URINE CLEAR (CLEAR); GLUCOSE, URINE (UA) 500 mg/dL (NEG); LEUKOCYTE ESTERASE ,URINE NEGATIVE (NEG); NITRATE,URINE NEGATIVE (NEG); OCCULT BLOOD,URINE SMALL (NEG); PH,URINE 5.5 (5.0-8.5); PROTEIN,URINE TRACE mg/dl (NEG); UROBILINOGEN,URINE 0.2 mg/dL (0.2)
[2016-09-22 15:35] LABS: BACTERIA,URINE RARE; SQUAMOUS EPITHELIAL CELL,UR RARE; URINE SAMPLE TYPE CLEAN CATCH URINE
[2016-09-22 15:38] LABS: HEMATOCRIT 38.9 % (42.0-52.0); HEMOGLOBIN 13.7 g/dL (14.0-18.0); MEAN CORPUSCULAR HEMOGLOBIN 29.5 PG (27-31); MEAN CORPUSCULAR HGB CONC 35.2 g/dL (33-37); MEAN PLATELET VOLUME 9.6 FL (7.4-12.2); RDW COEFFICIENT OF VARIATION 14.1 % (11.5-14.5); RED BLOOD COUNT 4.65 10^6/uL (4.70-6.10); WHITE BLOOD COUNT 4.67 10^3/uL (4.8-10.8)
[2016-09-22 16:03] LABS: PROTHROMBIN TIME 10.3 secs (9.7-11.4)
[2016-09-22 16:05] LABS: ASPARTATE AMINO TRANSFERASE 29 IU/L (21-57); BILIRUBIN,TOTAL 0.6 mg/dL (0.3-1.2); BLOOD UREA NITROGEN 27 mg/dL (7-22); CHLORIDE 99 meq/L (98-112); CREATININE 1.2 mg/dL (0.70-1.50); EST GLOMERULAR FILTRATION > 60 (>60 ml/min/1.73m(2)); POTASSIUM 4.3 meq/L (3.8-5.2); SODIUM 136 meq/L (135-145); TOTAL PROTEIN 7.4 g/dL (6.1-8.0)
[2016-09-22 16:30] LABS: GLUCOSE 484 mg/dL (78-110)
== END ==
LOC: MOB LAB 13:46
PROVIDERS: ATTEND Family Medicine
DX: Z01.812 Encounter for preprocedural laboratory examination (principal); Z01.810 Encounter for preprocedural cardiovascular examination; M54.5 Low back pain; R00.0 Tachycardia, unspecified
CPT/HCPCS: 36415; 80053; 81001; 85027; 85610; 85730; 93005; 93010

== ENCOUNTER → 2016-09-29 | Outpatient (CLI) | payer OTHER, BC ==
[2016-09-29 16:31] LABS: ASPARTATE AMINO TRANSFERASE 19 IU/L (21-57); BILIRUBIN,TOTAL 0.6 mg/dL (0.3-1.2); BLOOD UREA NITROGEN 21 mg/dL (7-22); CREATININE 1.2 mg/dL (0.70-1.50); EST GLOMERULAR FILTRATION > 60 (>60 ml/min/1.73m(2)); TOTAL PROTEIN 7.4 g/dL (6.1-8.0)
[2016-09-29 17:03] LABS: CALCIUM 10.4 mg/dL (8.7-10.7); CHLORIDE 99 meq/L (98-112); POTASSIUM 4.2 meq/L (3.8-5.2); SODIUM 134 meq/L (135-145)
[2016-09-29 17:38] LABS: GLUCOSE 516 mg/dL (78-110)
== END ==
LOC: MOB LAB 14:49
PROVIDERS: ATTEND Family Medicine
DX: E11.9 Type 2 diabetes mellitus without complications (principal)
CPT/HCPCS: 80053

== ENCOUNTER → 2016-10-06 | Outpatient (CLI) | payer OTHER, BC ==
[2016-10-06 17:35] LABS: BILIRUBIN,TOTAL 0.6 mg/dL (0.3-1.2); BUN/CREATININE RATIO 21.53 (6-20); CALCIUM 9.9 mg/dL (8.7-10.7); CREATININE 1.3 mg/dL (0.70-1.50); POTASSIUM 4.5 meq/L (3.8-5.2); TOTAL PROTEIN 7.5 g/dL (6.1-8.0)
== END ==
LOC: MOB LAB 15:06
PROVIDERS: ATTEND Family Medicine
DX: E11.9 Type 2 diabetes mellitus without complications (principal); I10 Essential (primary) hypertension
CPT/HCPCS: 36415; 80053

== ENCOUNTER → 2016-10-07 | Outpatient (CLI) | payer OTHER, BC | LOC: MMPC 10:00 | PROVIDERS: ATTEND Podiatrist Foot & Ankle Surgery | DX: L60.3 Nail dystrophy (principal); L60.0 Ingrowing nail; E11.65 Type 2 diabetes mellitus with hyperglycemia; E11.40 Type 2 diabetes mellitus with diabetic neuropathy, unspecified; M20.11 Hallux valgus (acquired), right foot; M20.41 Other hammer toe(s) (acquired), right foot; Z98.1 Arthrodesis status | CPT/HCPCS: 11720 ×2; G0463 ==

== ENCOUNTER → 2016-10-19 | Outpatient (CLI) | payer OTHER, BC ==
[2016-10-19 16:36] LABS: HEMATOCRIT 43.6 % (42.0-52.0); HEMOGLOBIN 14.9 g/dL (14.0-18.0); MEAN CORPUSCULAR HEMOGLOBIN 28.7 PG (27-31); MEAN CORPUSCULAR HGB CONC 34.2 g/dL (33-37); MEAN CORPUSCULAR VOLUME 83.8 FL (80-90); MEAN PLATELET VOLUME 9.8 FL (7.4-12.2); RED BLOOD COUNT 5.2 10^6/uL (4.70-6.10)
[2016-10-19 16:48] LABS: BLOOD UREA NITROGEN 18 mg/dL (7-22); CALCIUM 10.3 mg/dL (8.7-10.7); EST GLOMERULAR FILTRATION > 60 (>60 ml/min/1.73m(2))
[2016-10-22 16:30] LABS: BILIRUBIN,URINE NEGATIVE (NEG); CLARITY,URINE CLEAR (CLEAR); COLOR,URINE YELLOW; GLUCOSE, URINE (UA) NEGATIVE (NEG); NITRATE,URINE NEGATIVE (NEG); OCCULT BLOOD,URINE TRACE (NEG); PH,URINE 6.5 (5.0-8.5); PROTEIN,URINE NEGATIVE (NEG); URINE SAMPLE TYPE CLEAN CATCH URINE
[2016-10-22 16:35] LABS: BACTERIA,URINE RARE; SQUAMOUS EPITHELIAL CELL,UR RARE; WBC,URINE 0-1
== END ==
LOC: MOB LAB 15:14
PROVIDERS: ATTEND Family Medicine
DX: M47.896 Other spondylosis, lumbar region (principal); Z01.818 Encounter for other preprocedural examination
CPT/HCPCS: 36415; 80048; 81001; 85027; 85610; 85730

== ENCOUNTER → 2016-12-03 | Outpatient (CLI) | payer OTHER, BC ==
[2016-12-03 13:35] LABS: HEMATOCRIT 34.8 % (42.0-52.0); HEMOGLOBIN 11.5 g/dL (14.0-18.0); MEAN CORPUSCULAR VOLUME 84.9 FL (80-90); MEAN PLATELET VOLUME 9.1 FL (7.4-12.2); RED BLOOD COUNT 4.1 10^6/uL (4.70-6.10)
[2016-12-03 13:51] LABS: HEMOGLOBIN A1C 9.49 % (4.2-6.0)
[2016-12-03 13:52] LABS: BUN/CREATININE RATIO 19.28 (6-20); CALCIUM 10.2 mg/dL (8.7-10.7); CHOL/HDL RATIO 4.27 RATIO (0-4.0); LDL CHOLESTEROL,CALCULATED 45.4 mg/dL; SERUM ALBUMIN 3.9 g/dL (3.5-4.8)
== END ==
LOC: MOB LAB 11:19
PROVIDERS: ATTEND Family Medicine
DX: E11.9 Type 2 diabetes mellitus without complications (principal); Z79.4 Long term (current) use of insulin; I10 Essential (primary) hypertension; E78.5 Hyperlipidemia, unspecified; R55 Syncope and collapse; E66.3 Overweight
CPT/HCPCS: 36415; 80053; 80061; 83036; 84443; 85027; 99215; G0463

== ENCOUNTER → 2016-12-08 | Outpatient (CLI) | payer OTHER, BC ==
--- NOTE | 2016-12-08 17:31 | DI ---
US CAROTIDS B/L,12/08/2016 12:49 PM: Clinical History: Near syncope. Previous Exam: None at this facility. Findings: Multiple grayscale and color Doppler sonographic images are obtained through the carotid systems bila terally, and demonstrate diffuse plaque formation within the common carotid arteries and throughout t he bulbs. There is no elevated peak systolic velocity. The ICA to CCA ratio on the right measures 1.8 and on the left measures 1.0. Vertebral flow is antegrade bilaterally. Impression: Diffuse peripheral vascular disease within the carotid arteries with less than 50% stenosis.
== END ==
LOC: US 12:41
PROVIDERS: ATTEND Family Medicine
DX: R55 Syncope and collapse (principal); I73.9 Peripheral vascular disease, unspecified
CPT/HCPCS: 93880

== ENCOUNTER → 2016-12-22 | Outpatient (CLI) | payer OTHER, BC | LOC: MMPC 09:00 | PROVIDERS: ATTEND Family Medicine | DX: R55 Syncope and collapse (principal); I10 Essential (primary) hypertension; E66.3 Overweight; F41.1 Generalized anxiety disorder; E11.9 Type 2 diabetes mellitus without complications | CPT/HCPCS: 99214; G0463 ==

== ENCOUNTER → 2016-12-29 | Outpatient (CLI) | payer OTHER, BC ==
--- NOTE | 2017-01-02 19:25 | HOLTER ---
[facility] Interpretive Statements Cath x3 Type 2 diabetes This is a 48 hour Holter study done for "near syncope." The diary reports 15 episodes of mostly activities like "bathroom", "walking dog", and "lunch" or "dinner". There was only one symptomatic report of "some dizziness and pain in back" at 1:29 PM day one when the rhythm was sinus at 88 BPM with a singlet VPC and flipped T-waves. The other 14 episodes were all similar with NSR at rates from 70 to 100 BPM often with singlet VPCs. There were a total of 219,582 beats recorded and 3,922 possible VPCs, with 140 being couplets and one run of V-tach lasting 13 beats at 11:55 AM day 1 (near a reported "episode" of "bathroom"). There were 63 possible APCs with the longest run being 4 beats. The average QTc was 400ms. ST analysis was borderline with maximal ST depression of -127 uV. IMPRESSION: Abnormal 48 hour Holter study with asymptomatic V-tach episode of 13 beats, otherwise infrequent VPCs and mostly flipped T-waves raising question of ischemia. Electronically Signed On 01-03-17 09:55:03 MDT by Vincenzo Francis MD [id number]
== END ==
LOC: RT 12:49
PROVIDERS: ATTEND Family Medicine
DX: R55 Syncope and collapse (principal); I10 Essential (primary) hypertension
CPT/HCPCS: 93225; 93226; 93227

== ENCOUNTER → 2017-01-14 | Outpatient (CLI) | payer OTHER, BC ==
--- NOTE | 2017-01-14 10:52 | DI ---
XR L-SPINE 2-3 VW,01/14/2017 9:10 AM: Clinical History: Evaluate hardware removal. Previous Exam: May 11, 2016 Findings: 3 views of the lumbar spine are obtained, and demonstrate postsurgical changes consistent with multil evel laminectomies. There is posterior transpedicular fusion rods noted. There has been a change in the transverse fixator rods. Intervertebral disc spacer devices are noted. A nonobstructive bowel gas pattern is seen. There is a stable epidural stimulator device. Impression: Interval change in the appearance of the transverse stabilizing bars between the fusion rods. Otherwi se unchanged.
== END ==
LOC: RAD 08:59
PROVIDERS: ATTEND Neurological Surgery
DX: Z48.811 Encounter for surgical aftercare following surgery on the nervous system (principal); Z98.1 Arthrodesis status
CPT/HCPCS: 72100

== ENCOUNTER → 2017-01-25 | Outpatient (CLI) | payer OTHER, BC | LOC: MMPC 09:00 | PROVIDERS: ATTEND Family Medicine | DX: I10 Essential (primary) hypertension (principal); E78.5 Hyperlipidemia, unspecified; E11.9 Type 2 diabetes mellitus without complications; M54.5 Low back pain | CPT/HCPCS: 99213; G0463 ==

== ENCOUNTER → 2017-01-27 | Outpatient (CLI) | payer OTHER, BC | LOC: MMPC 10:00 | PROVIDERS: ATTEND Podiatrist Foot & Ankle Surgery | DX: G62.9 Polyneuropathy, unspecified (principal); E11.40 Type 2 diabetes mellitus with diabetic neuropathy, unspecified; B35.1 Tinea unguium; L60.3 Nail dystrophy; L60.0 Ingrowing nail; M20.41 Other hammer toe(s) (acquired), right foot; M20.11 Hallux valgus (acquired), right foot | CPT/HCPCS: 11720; 99212 ==